=== PATIENT | female | born 1950 | race Caucasian/White ===

== ENCOUNTER 2022-03-04 11:37 | Outpatient (RCR) | payer MEDICARE, OTHER | END 2022-03-07 | disposition home or self-care (01) | PROVIDERS: ATTEND Internal Medicine | DX: M25.512 Pain in left shoulder (principal) ==

== ENCOUNTER 2022-03-18 11:29 | Outpatient (RCR) | payer MEDICARE, OTHER | END 2022-04-07 | disposition home or self-care (01) | PROVIDERS: ATTEND Internal Medicine | DX: M25.512 Pain in left shoulder (principal); I10 Essential (primary) hypertension; E11.9 Type 2 diabetes mellitus without complications ==

== ENCOUNTER 2023-02-02 11:15 | Outpatient (RCR) | payer MEDICARE, OTHER | END 2023-02-05 | disposition home or self-care (01) | PROVIDERS: ATTEND Orthopaedic Surgery | DX: M25.512 Pain in left shoulder (principal); E11.9 Type 2 diabetes mellitus without complications; Z96.612 Presence of left artificial shoulder joint ==

== ENCOUNTER 2023-03-04 10:14 | Outpatient (RCR) | payer MEDICARE, OTHER | END 2023-03-07 | disposition home or self-care (01) | PROVIDERS: ATTEND Orthopaedic Surgery | DX: Z96.612 Presence of left artificial shoulder joint (principal) ==

== ENCOUNTER 2023-04-06 11:27 | Outpatient (RCR) | payer MEDICARE, OTHER | END 2023-04-07 | disposition home or self-care (01) | PROVIDERS: ATTEND Orthopaedic Surgery | DX: Z96.612 Presence of left artificial shoulder joint (principal) ==

== ENCOUNTER 2023-04-26 10:52 | Outpatient (RCR) | payer MEDICARE, OTHER | END 2023-04-26 15:17 | disposition home or self-care (01) | PROVIDERS: ATTEND Orthopaedic Surgery | DX: M25.512 Pain in left shoulder (principal); E11.9 Type 2 diabetes mellitus without complications; Z96.612 Presence of left artificial shoulder joint ==